=== PATIENT | female | born 1940 | race Caucasian/White ===

== ENCOUNTER 2017-10-11 22:30 | Inpatient (IN) ==
[2017-10-11] MEDS ORDERED: *HR* FentaNYL (PF) 100 MCG/2 ML VIAL IVP ONE (22:35)
--- NOTE | 2017-10-11 22:42 | Emergency Department Note ---
Disposition Clinical Impression: Hip fracture Qualifiers: Encounter type: initial encounter Fracture type: closed Laterality: right Qualified Code(s): S72.001A - Fracture of unspecified part of neck of right femur, initial encounter for closed fracture Fall Qualifiers: Encounter type: initial encounter Qualified Code(s): W19.XXXA - Unspecified fall, initial encounter Disposition: Admitted As Inpatient Condition: Fair Referrals: Joaquim Michel Jr, MD [Primary Care Provider] - Forms: ED Satisfaction Letter Time of Disposition: 23:11 Lower Extremity Injury HPI - General Chief Complaint: ED Extremity Injury, Lower Stated Complaint: fell Time Seen by Provider: 10/11/17 22:32 Source: patient, EMS Mode of arrival: EMS Limitations: altered mental status Nursing Notes Reviewed: Yes Vital Signs Reviewed: Yes - History of Present Illness HPI Narrative: Patient sustained an unwitnessed fall at the [facility] several hours ago. She had an imaging study for that indicated a right hip fracture. Other history was unable to be obtained given the patient's advanced dementia Injury location: Right hip Onset (ago): hour(s) Mechanism of Injury: unknown Context: fall Place: home Improves with: nothing Worsens with: movement Associated symptoms: Reports: unable to bear weight - Related Data Allergies Allergy/AdvReac Type Severity Reaction Status Date / Time Cephalosporins Allergy See Verified 05/21/16 16:50 Comments Limitations: ROS unobtainable due to patients medical condition Past Medical History - Past Medical History Source: old records reviewed Medical history: Reports: non-contributory, dementia, diabetes, hyperlipidemia, hypertension, osteoporosis, thyroid disease - Social History Smoking Status: Unknown if ever smoked Alcohol use: Reports: none Drug use: Reports: none Physical Exam - General Limitations: no limitations General appearance: alert - Head Head exam: atraumatic - Eye Eye exam: Present: other (Injection of her left conjunctiva) - ENT ENT exam: normal exam - Neck Neck exam: Present: normal inspection, full ROM - Chest Chest inspection: Present: normal inspection, symmetric chest wall rise - Respiratory Respiratory exam: Present: normal lung sounds bilaterally - Cardiovascular Cardiovascular exam: Present: regular rate, normal rhythm, normal heart sounds - Abdominal Exam Abdominal exam: Present: soft, Non-Tender - Rectal Exam Rectal exam: Present: deferred - Expanded Lower Extremity Exam Hip/Pelvis exam: Present: normal inspection. Absent: full ROM, tenderness Upper leg exam: Present: normal inspection Knee exam: Present: normal inspection Lower leg exam: Present: normal inspection, other (Shortened with slight internal rotation) Ankle exam: Present: normal inspection Foot/toe exam: Present: normal inspection Neurovascular/Tendon exam: Absent: pulse deficit - Neurological Exam Neurological exam: Present: alert, CN II-XII intact, other (Oriented to person only) - Psychiatric Psychiatric exam: Present: normal mood, flat affect - Skin Skin exam: Present: warm, dry, intact Course Course Narrative: Patient sustained an unwitnessed fall. It was reported that she had a diagnosed right hip fracture prehospital. - Consultations Consultation #1: Case discussed with Dr. Cho, orthopedics. Vital Signs Pulse Rate 77 10/11/17 22:34 Temperature 97.8 F 10/11/17 22:45 Pulse Rate 76 10/11/17 23:05 Respiratory Rate 18 10/11/17 23:05 Blood Pressure 133/109 10/11/17 23:05 O2 Sat by Pulse Oximetry 93 10/11/17 23:05 Oxygen Delivery Oxygen Delivery Room Air Extremity Injury, Lower - MDM Narrative Medical decision making narrative: Medication list reviewed - Medical Records Medical records reviewed: Yes I reviewed the patient's medical records. - Lab Data Lab results reviewed: Yes I reviewed the patient's lab results. Result diagrams: 10/11/17 22:43 10/11/17 22:43 Lab Results 10/11/17 10/11/17 10/11/17 Range/Units 22:43 22:43 22:43 WBC 9.9 (4.3-11.1) K/mcL RBC 4.65 (3.82-4.97) M/mcL Hgb 13.9 (11.5-15.4) g/dL Hct 42.7 (35.3-44.9) % MCV 91.8 (83.0-100.0) fL MCH 29.9 (28.0-33.3) pg MCHC 32.6 (31.6-35.5) g/dL RDW 12.5 (11.5-14.5) % Plt Count 258 (140-400) K/mcL MPV 10.9 (9.4-12.4) fL Immature Gran % 0.2 (0-4) % Seg Neutrophils % 66.6 % Lymphocytes % 23.8 % Monocytes % 5.7 % Eosinophils % 3.3 % Basophils % 0.4 % Neutrophils # 6.6 (1.6-8.9) K/mcL Lymphocytes # 2.4 (0.6-4.6) K/mcL Monocytes # 0.6 (0.0-1.3) K/mcL Eosinophils # 0.3 (0.0-0.6) K/mcL Basophils # 0.0 (0.0-0.2) K/mcL PT 13.9 H (9.4-12.1) Seconds INR 1.3 Sodium 143 (136-145) mEq/L Potassium 3.7 (3.5-5.1) mEq/L Chloride 111 H (98-107) mEq/L Carbon Dioxide 23 (23-29) mEq/L BUN 18 (8-23) mg/dL Creatinine 0.65 (0.60-1.20) mg/dL Est GFR ( Amer) > 60 (> 60) Est GFR (Non-Af Amer) > 60 (> 60) BUN/Creatinine Ratio 28 H (6-26) Glucose 115 H (70-105) mg/dL Calculated Osmolality 299 (280-300) Calcium 9.2 (8.6-10.3) mg/dL Total Bilirubin 0.6 (0.3-1.0) mg/dL AST 20 (13-39) Units/L ALT 25 (7-52) Units/L Alkaline Phosphatase 61 (34-104) Units/L Serum Total Protein 6.7 (6.4-8.9) g/dL Albumin 3.8 (3.5-5.7) g/dL Globulin 2.9 (2.4-3.5) g/dL Albumin/Globulin Ratio 1.3 (1.1-2.2) - Radiology Data Radiology results reviewed: Yes I reviewed the patient's radiology results. - EKG Data EKG attestation: Yes I reviewed and interpreted this EKG. EKG results narrative: NSR 78 TN 161 QRS 81 QT/QTC 379/413
[2017-10-11 22:50] LABS: Basophils % 0.4 %; Eosinophils # 0.3 K/mcL (0.0-0.6); Eosinophils % 3.3 %; Hematocrit 42.7 % (35.3-44.9); Hemoglobin 13.9 g/dL (11.5-15.4); Immature Granulocytes % 0.2 % (0-4); Lymphocytes # 2.4 K/mcL (0.6-4.6); Lymphocytes % 23.8 %; Mean Corpuscular HGB Conc 32.6 g/dL (31.6-35.5); Mean Corpuscular Hemoglobin 29.9 pg (28.0-33.3); Mean Corpuscular Volume 91.8 fL (83.0-100.0); Mean Platelet Volume 10.9 fL (9.4-12.4); Monocytes # 0.6 K/mcL (0.0-1.3); Monocytes % 5.7 %; Neutrophils # 6.6 K/mcL (1.6-8.9); Platelet Count 258 K/mcL (140-400); Red Blood Count 4.65 M/mcL (3.82-4.97); Red Cell Distribution Width 12.5 % (11.5-14.5); Segmented Neutrophils % 66.6 %
[2017-10-11 22:55] LABS: INR 1.3; Prothrombin Time 13.9 Seconds (9.4-12.1)
[2017-10-11 23:06] LABS: Alanine Aminotransferase 25 Units/L (7-52); Albumin 3.8 g/dL (3.5-5.7); Albumin/Globulin Ratio 1.3 (1.1-2.2); Alkaline Phosphatase 61 Units/L (34-104); Aspartate Amino Transferase 20 Units/L (13-39); BUN/Creatinine Ratio 28 (6-26); Bilirubin,Total 0.6 mg/dL (0.3-1.0); Blood Urea Nitrogen 18 mg/dL (8-23); Calcium 9.2 mg/dL (8.6-10.3); Carbon Dioxide 23 mEq/L (23-29); Chloride 111 mEq/L (98-107); Globulin 2.9 g/dL (2.4-3.5); Glucose 115 mg/dL (70-105); Osmolality,Calculated 299 (280-300); Potassium 3.7 mEq/L (3.5-5.1); Sodium 143 mEq/L (136-145); Total Protein 6.7 g/dL (6.4-8.9); eGFR For African Americans > 60 (> 60); eGFR For Non-African Americans > 60 (> 60)
[2017-10-11 23:51] LABS: Bilirubin,Urine Small (Negative); Blood,Urine Small (Negative); Clarity,Urine Cloudy (Clear); Color,Urine Red (Yellow); Glucose,Urine (UA) Normal (Normal); Ketones,Urine Trace mg/dL (Negative); Leukocyte Esterase,Urine Small (Negative); Nitrite,Urine Negative (Negative); PH,Urine 6.5 pH Units (5.0-8.0); Protein,Urine 30 mg/dL (Neg-Trace); Specific Gravity,Urine 1.027 (1.010-1.025); Urobilinogen,Urine Normal (Normal)
[2017-10-11 23:52] LABS: Bacteria,Urine None Seen per hpf (None-Few); RBC,Urine 15-30 per hpf (0-3); Squamous Epithelial Cell,Urine Many per lpf (None-Few); WBC,Urine 0-3 per hpf (0-3)
[2017-10-11] MEDS ORDERED: Naloxone 0.4 MG/ML INJ IVP PRN (23:55)
[2017-10-11] MEDS ORDERED: Ketorolac 30 MG/ML VIAL IVP PRN (23:55)
--- NOTE | 2017-10-11 23:55 | Internal Med History&Physical ---
Date of Encounter: 10/11/17 Time of Encounter: 23:45 Assessment and Plan (1) Hip fracture Current visit: Yes Status: Acute Patient with acute subcapital right hip fracture. Consult orthopedics for possible surgery. Patient appears to be medically stable for surgery at this time. Moderate risk for complications. However given her Alzheimer's dementia , she does have decreased chance of making a full recovery post surgery. Consult PTOT and elementary school social worker after surgery. Pain control. Monitor vital signs closely. Qualifiers: Encounter type: initial encounter Fracture type: closed Laterality: right Qualified Code(s): S72.001A - Fracture of unspecified part of neck of right femur, initial encounter for closed fracture (2) Diabetes mellitus Current visit: Yes Status: Chronic Monitor blood sugars. Low-dose sliding scale coverage with insulin Qualifiers: Diabetes mellitus type: type 2 Diabetes mellitus complication status: without complication Diabetes mellitus longterm insulin use: without terminal make up operator use Qualified Code(s): E11.9 - Type 2 diabetes mellitus without complications (3) Essential hypertension Current visit: Yes Status: Chronic Will resume home medications. (4) DVT prophylaxis Current visit: Yes Status: Acute With subcutaneous heparin postsurgery. Internal Medicine - H&P: HPI Chief complaint: Fall at assisted Admitted From: Emergency Dept Plans for Post Hospital Care: Transfer Intermediate Facility History of present illness: Ms. Smith is a 77 year old female patient with history of diabetes, hypertension , hyperlipidemia and severe Alzheimer's dementia who resides at assisted and apparently had an unwitnessed fall and was brought into the ER for evaluation. At baseline, patient does not ambulate much and requires help to move from bed to chair. She also needs help with feeding and does not participate in conversations and usually mumbles to questions. She also has difficulty recognizing people. In the ER, she was evaluated with a right hip x- ray which showed right impacted subcapital fracture of the right hip. Orthopedics was consulted and they recommended admission for further evaluation and possible surgery. At this time patient is unable to provide much history due to her history of dementia at baseline. History has been obtained through the patient's son was present at bedside. Patient's son reports that she had been treated for UTI and mild pneumonia recently and had just completed a course of Macrobid. Patient does have advance directives with DNR CC status. Past Med Surg Social Fam HX - Past Medical History Source: old records reviewed, obtained from family Medical history: dementia, diabetes, hyperlipidemia, hypertension, osteoporosis , thyroid disease - Social History Smoking Status: Unknown if ever smoked Alcohol use: none Drug use: none - Additional Family History Additional family history: Reviewed and found to be noncontributory at this time Internal Medicine - H&P: Meds 3 Allergy/AdvReac Type Severity Reaction Status Date / Time Cephalosporins Allergy See Verified 05/21/16 16:50 Comments ROS unobtainable: due to mental status All Systems PM: A 10-system review of systems was performed and is negative for pertinent findings except as documented above in the HPI. - Constitutional Vitals: Temp Pulse Resp BP Pulse Ox 97.8 F 76 18 133/109 93 10/11/17 22:45 10/11/17 23:05 10/11/17 23:05 10/11/17 23:05 10/11/17 23:05 General appearance: Present: A&O X 0, mild distress. Absent: answers questions appropriately - Respiratory Respiratory exam: Present: CTAB. Absent: accessory muscle use, rales, rhonchi, wheezes - Cardiovascular Cardiovascular exam: Present: RRR, +S1, +S2. Absent: diastolic murmur, gallop, rubs, systolic murmur - GI/Abdominal GI/Abdominal exam: Present: normal bowel sounds, soft, no peritoneal signs. Absent: distended, tenderness - Extremities Exam Extremities exam: Present: tenderness (Right hip). Absent: calf tenderness, cyanotic, pedal edema - Neurological Exam Neurological exam: Present: altered Additional comments: Unable to assess neuro exam due to patient's baseline mental status Internal Med - H&P Results - Labs CBC & Chem 7: 10/11/17 22:43 10/11/17 22:43 - EKG Data -: EKG Interpreted by Myself EKG shows normal: sinus rhythm - EKG Data Interpretation IM: normal EKG - Impressions Impressions Hip X-Ray 10/11/17 00:00 IMPRESSION: Impacted subcapital fracture of the right hip. D/ / Valentin Aly MD / Valentin Aly MD Interpreting Provider: Valentin Aly MD Chest X-Ray 10/11/17 22:33 IMPRESSION: Linear atelectasis versus scar in the left lung base. D/ / Jacy Tony MD / Jacy Tony MD Interpreting Provider: Jacy Tony MD Pelvis X-Ray 10/11/17 22:34 IMPRESSION: Impacted right subcapital hip fracture, likely acute. Mild rectal fecal impaction. D/ / Tino Santa MD / Tino Santa MD Interpreting Provider: Tino Santa MD
[2017-10-12] MEDS ORDERED: Dextrose Gel 15 GM/37.5 ML TUBE PO PRN ×2 (00:24)
[2017-10-12] MEDS ORDERED: *HR* Dextrose 50 % in Water (Syg) 50 ML SYRINGE IVP PRN (00:24)
[2017-10-12] MEDS ORDERED: D5% in Water 1,000 ML IVC PRN (00:24)
[2017-10-12] MEDS: 0.9 % Sodium Chloride 1,000 ML IVC SCH ×2 (02:10→14:37)
[2017-10-12] MEDS: Insulin LISPRO 300 UNITS/3 ML VIAL SQ SCH ×3 (06:16→17:32)
--- NOTE | 2017-10-12 08:02 | Orthopedic Consult Note ---
Date of Encounter: 10/12/17 Time of Encounter: 07:59 Assessment and Plan (1) Hip fracture Current Visit: Yes Status: Acute Valgus impacted subcapital femoral neck fracture. My recommendation is for percutaneous pin fixation in order to stabilize the right hip. There is no family at the bedside to converse with and therefore I will get a hold of the power of employment law attorney later today. She is tentatively on the schedule for the percutaneous pinning pending medical clearance and consent from the power of employment law attorney. Nothing by mouth today. Qualifiers: Encounter type: initial encounter Fracture type: closed Laterality: right Qualified Code(s): S72.001A - Fracture of unspecified part of neck of right femur, initial encounter for closed fracture History of Present Illness HPI: Ms. Smith is a 77 year old female admitted to the hospitalist due to a right subcapital impacted femoral neck fracture. She does not provide much history given severe Alzheimer's and there are no family members at the bedside to corroborate history. Therefore the history was obtained through the chart. The patient has no complaints though she does not communicate effectively. Past Med Surg Social Fam HX - Past Medical History Medical history: dementia, diabetes, hyperlipidemia, hypertension, osteoporosis , thyroid disease - Social History Smoking Status: Unknown if ever smoked Alcohol use: none Drug use: none - Family History Mother Living Status: Hx Family Cardiac Disorders: Yes Hx Family Endocrine Disorder: Yes (dm) Medications and Allergies Bisacodyl [Woman's Laxative] 10 mg PO DAILY PRN 10/12/17 [History] Ciprofloxacin OPTH Soln [Ciloxan OPTH Soln] 1 drop LEFT EYE TID 10/12/17 [ History] Desitin (Zinc Oxide) [Desitin Diaper Rash 40 % Paste] 1 appl TP DAILY 10/12/17 [ History] Docusate Sodium [Colace] 200 mg PO BID 10/12/17 [History] Levothyroxine Sodium [Levoxyl] 50 mcg PO DAILY 10/12/17 [History] Lisinopril 2.5 mg PO DAILY 10/12/17 [History] Melatonin [Melatin] 3 mg PO HS 10/12/17 [History] 3 Allergy/AdvReac Type Severity Reaction Status Date / Time Cephalosporins Allergy See Verified 05/21/16 16:50 Comments All Systems Reviewed: A 10-system review of systems was performed and is negative for pertinent findings except as documented above in the HPI. Physical Exam - Constitutional Vitals: Temp Pulse Resp BP Pulse Ox 98.3 F 79 16 106/50 94 10/12/17 07:07 10/12/17 07:07 10/12/17 07:07 10/12/17 07:07 10/12/17 07:07 Constitutional -Vitals reviewed -The patient is well developed and well nourished. -Mood is pleasant. -The patient is well groomed. Psychiatric -Dementia Respiratory: -Respiratory effort normal Abdomen: -Soft abdomen -Non tender -Non distended: Left upper extremity: -No deformities. The overlying skin is intact. No obvious signs of acute trauma. -No tenderness to palpation throughout. -No significant pain with passive motion of the shoulder, elbow, wrist, and fingers within the limits of the bed. -Unable to perform a meaningful neurologic exam given her mental status. -Radial pulse is present; Fingers have good capillary refill. Right upper extremity: -No deformities. The overlying skin is intact. No obvious signs of acute trauma. -No tenderness to palpation throughout. -No significant pain with passive motion of the shoulder, elbow, wrist, and fingers within the limits of the bed. -Unable to perform a meaningful neurologic exam given her mental status. -Radial pulse is present; Fingers have good capillary refill. Left lower extremity: -No deformities. The overlying skin is intact. No obvious signs of acute trauma. -No tenderness to palpation throughout. -No pain with passive motion of the hip, knee, ankle, and toes within the limits of the bed. -Padded motion and hip given her known injury -Unable to perform a meaningful neurologic exam given her mental status. -Toes have good capillary refill. Right lower extremity: -No deformities. The overlying skin is intact. No obvious signs of acute trauma. -No tenderness to palpation throughout. -Did not range this extremity due to her known injury -Unable to perform a meaningful neurologic exam given her mental status. -Toes have good capillary refill. Diagnostic Imaging: I did personally review and interpret the AP of the pelvis and lateral right hip which shows a subcapital impacted femoral neck fracture Results - Labs Result Diagrams: 10/11/17 22:43 10/11/17 22:43 Labs: Abnormal lab results PT 13.9 Seconds (9.4-12.1) H 10/11/17 22:43 Chloride 111 mEq/L (98-107) H 10/11/17 22:43 BUN/Creatinine Ratio 28 (6-26) H 10/11/17 22:43 Glucose 115 mg/dL (70-105) H 10/11/17 22:43 POC Glucose 103 (58-89) H 10/12/17 06:14 Urine Color Red (Yellow) A 10/11/17 23:35 Urine Clarity Cloudy (Clear) A 10/11/17 23:35 Ur Specific [place] 1.027 (1.010-1.025) H 10/11/17 23:35 Urine Protein 30 mg/dL (Neg-Trace) H 10/11/17 23:35 Urine Ketones Trace mg/dL (Negative) H 10/11/17 23:35 Urine Blood Small (Negative) H 10/11/17 23:35 Urine Bilirubin Small (Negative) H 10/11/17 23:35 Ur Leukocyte Esterase Small (Negative) H 10/11/17 23:35 Urine Microscopic RBC 15-30 per hpf (0-3) H 10/11/17 23:35 Ur Squamous Epith Cells Many per lpf (None-Few) H 10/11/17 23:35 All other labs normal. Consult Discharge Plan - Plan Referrals: Joaquim Michel Jr, MD [Primary Care Provider] -
--- NOTE | 2017-10-12 17:03 | Anesthesia Evaluation PreOp ---
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 History: Other (Alzheimer's dementia) Other Medical History: Diabetes Type II Anesthesia History: Past Anesthesia Alcohol Use: none Drug use: none Medications and Allergies Bisacodyl [Woman's Laxative] 10 mg PO DAILY PRN 10/12/17 [History] Ciprofloxacin OPTH Soln [Ciloxan OPTH Soln] 1 drop LEFT EYE TID 10/12/17 [ History] Desitin (Zinc Oxide) [Desitin Diaper Rash 40 % Paste] 1 appl TP DAILY 10/12/17 [ History] Docusate Sodium [Colace] 200 mg PO BID 10/12/17 [History] Levothyroxine Sodium [Levoxyl] 50 mcg PO DAILY 10/12/17 [History] Lisinopril 2.5 mg PO DAILY 10/12/17 [History] Melatonin [Melatin] 3 mg PO HS 10/12/17 [History] 3 Allergy/AdvReac Type Severity Reaction Status Date / Time Cephalosporins Allergy See Verified 05/21/16 16:50 Comments - Meds/Allergy Pre-op Review Medications Reviewed: Yes Allergies Reviewed: Yes Beta Blockers on Current Med List: Yes Anesthesia Results - Labs 10/11/17 22:43 10/11/17 22:43 Laboratory Tests 10/11/17 22:43 PT 13.9 H INR 1.3 Anesthesia Exam Vital Signs/O2 Sat/Glucose, Most Recent Temp Pulse Resp BP Pulse Ox 96.9 F L 54 16 90/62 95 10/12/17 15:31 10/12/17 15:31 10/12/17 15:31 10/12/17 15:31 10/12/17 15:31 Blood Glucose* 111 Height: 5'6''/1.68 m Weight: 140 lbs/59 kg NPO (# of Hours): 8 Pain Scale: 0 Pain Scale Used: Numeric (1 - 10) Anesthesia Assess/Plan ASA Score: 3 Modified [place] Scale for Level of Consciousness: Cooperative, oriented, and tranquil Anesthetic Plan: General Monitoring Plan: Standard Monitors Recovery Plan: PACU
[2017-10-12] MEDS ORDERED: *HR* PHENYLEPHRINE 1,000 MCG/10 ML SYRINGE IVP ONE (18:06)
[2017-10-12] MEDS ORDERED: Lidocaine -MPF 2% 2 ML VIAL ONE (18:07)
[2017-10-12] MEDS ORDERED: Dexamethasone 4 MG/ML VIAL ONE (18:07)
[2017-10-12] MEDS ORDERED: Lidocaine -MPF 4% 5 ML AMPUL ONE (18:07)
[2017-10-12] MEDS ORDERED: Ondansetron 4 MG/2 ML VIAL ONE (18:07)
[2017-10-12] MEDS ORDERED: *HR* Propofol 200 MG/20 ML VIAL IVP ONE (18:07)
[2017-10-12] MEDS ORDERED: *HR* FentaNYL (PF) 100 MCG/2 ML VIAL ONE (18:07)
[2017-10-12] MEDS ORDERED: MORPHINE SUL Oral CONC 10 MG/0.5 ML ORAL.SYG SL PRN (19:07)
[2017-10-12] MEDS ORDERED: Naloxone 0.4 MG/ML INJ IVP PRN (19:46)
--- NOTE | 2017-10-12 19:53 | Orthopedic Operative Note ---
Date of procedure: 10/12/17 Procedure: OPERATIVE REPORT DATE OF PROCEDURE: 10/12/2017 SURGEON: Gabriele Granda MD TRIM SAWYER(S): There are no assistants PREOPERATIVE DIAGNOSIS: Valgus impacted subcapital right femoral neck fracture POSTOPERATIVE DIAGNOSIS: Same PROCEDURE: In situ percutaneous screw fixation of the right femoral neck ANESTHESIA: General anesthesia PREOPERATIVE ANTIBIOTICS: 2 g of Ancef ESTIMATED BLOOD LOSS: 30 milliliters IMPLANTS: 6.5 millimeter [place] partially-threaded cancellous screws 3 LOCAL INJECTION: None PREOPERATIVE NOTE AND INDICATIONS: Patient is a 77-year-old female with a right subcapital impacted femoral neck fracture. She has dementia and I did discuss this with the next of kin. My recommendation was for percutaneous screw fixation to stabilize the hip and reduce the risk of displacement. The surgical plan was discussed with the patient and son. The risks, benefits, alternatives, and potential complications of this procedure were discussed with the patient including injury to veins, arteries, nerves, tendons, ligaments, and bone. Also discussed were the risks of infection, bleeding, pain, blood clots, the possible need for a blood transfusion, the possible need for further procedures, heart attack, stroke, and . Additional risks include malunion , nonunion, avascular necrosis, and the need for hardware removal or prosthetic replacement. All of this was explained in simple terms, and the patient and son verbalized understanding and wished to proceed. Consent was given to proceed with surgery. The patient was seen in the preoperative holding area where the right hip was marked. Final questions were answered. She was brought back to the operating room and a preoperative tunnel was performed to identify the correct patient, correct procedure, and the correct side. Gen. anesthesia was administered. The patient was placed onto the traction table and the right lower extremity was placed in the traction boot without traction placed. The left lower extremity is flexed and abducted out of the way. Could x-rays could be obtained. The right thigh was prepped and draped in the usual fashion. A timeout was performed identifying the correct patient, correct procedure, the correct side. A small, longitudinal incision was made along the lateral thigh and dissection proceeded through the fascia dylon. The vastus lateralis was opened and the guidewire drilled into the femoral head. 2 other guidewires were placed. Each guidewire was measured, drilled, and the definitive short threaded 6.5 mm partially threaded cancellus screw was placed. X-rays confirmed good position. The screws had good purchase. The wound was copiously irrigated and the fascia was closed with 0 Vicryl stitches followed by the skin with 3-0 Vicryl and zip tie closure and dressing. She was taken off from the traction table in good condition. The instrument, sponge, and needle counts were correct after wound closure. POST OPERATIVE PLAN: Weight Bearing: Weightbearing as tolerated to bilateral lower extremities. DVT Prophylaxis: Aspirin Activity: Activities as tolerated with the assistance of therapy Wound Care: Keep the dressing clean, dry, and intact. Pain Control: Per the hospitalist Perioperative antibiotic prophylaxis: 2 doses of clindamycin Social work for discharge planning Follow Up: 2 weeks Was there an entry level administrative assistant present: No Estimated blood loss (cc): 30
--- NOTE | 2017-10-12 20:16 | Anesthesia Evaluation Post Op ---
Date of Encounter: 10/12/17 Time of Encounter: 20:16 - Vital Signs Vital Signs: Vital Signs/O2 Sat, Most Current Temp Pulse Resp BP Pulse Ox 97.3 F L 85 16 124/86 95 10/12/17 19:42 10/12/17 20:02 10/12/17 20:02 10/12/17 20:02 10/12/17 20:02 - Lungs Lungs: Clear Ascult./Percussion - Airway Airway: Non-obstructed - Cardiovascular Regular Rate - Pain Pain Scale: 0 Pain Scale used: Numeric (1 - 10) - Nausea Vomiting Nausea Vomiting: Not Present - Hydration Hydration: NPO, Hernandez catheter - Discharge PostOp Status: Transfer Patient to floor
--- NOTE | 2017-10-13 | Internal Med Progress Note ---
Date of Encounter: 10/12/17 Time of Encounter: 16:30 - Assessment and plan (1) Hip fracture Current Visit: Yes Status: Acute Assessment and plan: Ortho following, plan for surgery today or tomorrow. Patient non-verbal but does not seem to be in any acute pain. 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 No acute events. Family present at bedside. They state she does not appear to be in any acute pain. - Constitutional Vitals: Temp Pulse Resp BP Pulse Ox 97.6 F 80 16 128/90 94 10/12/17 22:30 10/12/17 22:30 10/12/17 22:30 10/12/17 22:30 10/12/17 22:30 General appearance: Present: A&O X 0, no acute distress. Absent: answers questions appropriately Exam: - Respiratory Respiratory exam: Present: CTAB. Absent: accessory muscle use, rales, rhonchi, wheezes - Cardiovascular Cardiovascular exam: Present: RRR, +S1, +S2. Absent: diastolic murmur, gallop, rubs, systolic murmur - GI/Abdominal GI/Abdominal exam: Present: normal bowel sounds, soft, no peritoneal signs. Absent: distended, tenderness - Extremities Exam Extremities exam: Present: tenderness (Right hip). Absent: calf tenderness, cyanotic, pedal edema - Neurological Exam Neurological exam: Present: altered Internal Medicine: Result - Labs CBC & Chem 7: 10/13/17 06:54 10/13/17 06:54 - ABG Interpretation ABG results: PT/INR, D-dimer PT 13.9 Seconds (9.4-12.1) H 10/11/17 22:43 - Impressions Impressions Fluoroscopy 10/12/17 18:50 IMPRESSION: Intraprocedural fluoroscopic spot images as above. See separate procedure report for more information. D/ / Rigoberto Paulson MD / Rigoberto Paulson MD Interpreting Provider: Rigoberto Paulson MD Hip X-Ray 10/12/17 18:50 IMPRESSION: Intraprocedural fluoroscopic spot images as above. See separate procedure report for more information. D/ / Rigoberto Paulson MD / Rigoberto Paulson MD Interpreting Provider: Rigoberto Paulson MD - VTE Documentation of Mechanical Device: Intermittent pneumatic compression device Consult Discharge Plan - Plan Additional Instructions: [facility] DISCHARGE INSTRUCTIONS Dr. Granda PROCEDURE PERFORMED Reduction and fixation of right hip. Incision care -Daily dressing changes to the right hip with dry gauze and either paper tape or medipore tape. -Avoid soaking wound in water (no hot tubs, bathtubs, swimming pools). -May shower after 2 weeks from surgery date. Carefully wash incision with soap and water. Gently pat it dry. Don't rub the incision, or apply creams or lotions. Sit on a shower stool when showering to keep from falling. Weight bearing status -Weightbearing as tolerated to the bilateral lower extremities. Medications -Pain medication per the discharging medical doctor -Enteric coated aspirin 325 mg by mouth twice per day for 28 days from the date of the surgery. Other -Knee high KRIS hose 23 hours per day -Consult physical and occupational therapy for mobilization. -Up to chair with assistance at least twice per day. -Follow up with your primary care physician to discuss testing for bone mineral density. Follow-up with Dr. Granda at the office 2 weeks from the surgery date for a post operative evaluation. Call the office at [phone] to schedule appointment.oo Referrals: Joaquim Michel Jr, MD [Primary Care Provider] -
[2017-10-13] MEDS: Insulin LISPRO 300 UNITS/3 ML VIAL SQ SCH ×4 (00:31→18:47)
[2017-10-13] MEDS: 0.9 % Sodium Chloride 1,000 ML IVC SCH ×2 (00:33→11:16)
[2017-10-13 07:29] LABS: Hematocrit 38.1 % (35.3-44.9); Hemoglobin 12.6 g/dL (11.5-15.4)
[2017-10-13 07:42] LABS: BUN/Creatinine Ratio 23 (6-26); Blood Urea Nitrogen 14 mg/dL (8-23); Calcium 8.3 mg/dL (8.6-10.3); Carbon Dioxide 23 mEq/L (23-29); Chloride 113 mEq/L (98-107); Glucose 102 mg/dL (70-105); Osmolality,Calculated 295 (280-300); Potassium 3.7 mEq/L (3.5-5.1); Sodium 142 mEq/L (136-145); eGFR For African Americans > 60 (> 60); eGFR For Non-African Americans > 60 (> 60)
[2017-10-13] MEDS: Clindamycin 900 MG/50 ML 900 MG/50 ML IV.SOLN IVPB SCH ×2 (07:55→15:41)
[2017-10-13] MEDS: Acetaminophen 325 MG TABLET PO PRN ×2 (07:59→20:31)
[2017-10-13] MEDS ORDERED: D5% in Water 1,000 ML IVC PRN (08:13)
[2017-10-13] MEDS ORDERED: *HR* Dextrose 50 % in Water (Syg) 50 ML SYRINGE IVP PRN (08:13)
[2017-10-13] MEDS ORDERED: Dextrose Gel 15 GM/37.5 ML TUBE PO PRN ×2 (08:13)
--- NOTE | 2017-10-13 08:28 | Orthopedics Progress Note ---
Date of Encounter: 10/13/17 Time of Encounter: 08:26 - Assessment and Plan (1) Hip fracture Current Visit: Yes Status: Acute Qualifiers: Encounter type: initial encounter Fracture type: closed Laterality: right Qualified Code(s): S72.001A - Fracture of unspecified part of neck of right femur, initial encounter for closed fracture Subjective Interval history: S: Resting in bed; Noncommunicative due to mental status. O: Afebrile, VSS Right thigh dressing is clean, dry, intact Unable to perform neruologic exam due to mental status A: POD 1 afte right hip pinning P: Therapy when able WBAT B/L PIPE [place] is out ASA 325 PO BID for DVT ppx Objective Vital signs: Vital Signs Temp Pulse Resp BP Pulse Ox 10/13/17 07:33 97.7 F 70 15 99/54 92 10/13/17 03:55 98.1 F 85 19 111/76 96 10/12/17 23:30 97.8 F 53 16 108/57 94 10/12/17 22:30 97.6 F 80 16 128/90 94 10/12/17 21:30 97.6 F 76 14 118/76 90 10/12/17 21:00 97.8 F 62 16 112/57 90 10/12/17 20:30 98.6 F 76 16 130/78 91 10/12/17 20:12 98.6 F 87 16 131/98 95 10/12/17 20:02 85 16 124/86 95 10/12/17 19:52 75 16 125/49 96 10/12/17 19:42 97.3 F L 84 16 112/73 97 10/12/17 15:31 96.9 F L 54 16 90/62 95 10/12/17 11:04 99.2 F 75 16 109/60 92 10/12/17 08:57 94 Intake and Output 10/12/17 10/13/17 10/13/17 23:59 07:59 15:59 Output Total 450 / 450 Balance -30 / -30 -450 / -450 Output: Estimated Blood Loss Catheter 450 / 450 Other: Meal NPO Blood Glucose* 93 92 - Labs CBC & BMP: 10/13/17 06:54 10/13/17 06:54 Labs: Abnormal lab results PT 13.9 Seconds (9.4-12.1) H 10/11/17 22:43 Chloride 113 mEq/L (98-107) H 10/13/17 06:54 POC Glucose 111 (58-89) H 10/12/17 12:08 Calcium 8.3 mg/dL (8.6-10.3) L 10/13/17 06:54 Urine Color Red (Yellow) A 10/11/17 23:35 Urine Clarity Cloudy (Clear) A 10/11/17 23:35 Ur Specific [place] 1.027 (1.010-1.025) H 10/11/17 23:35 Urine Protein 30 mg/dL (Neg-Trace) H 10/11/17 23:35 Urine Ketones Trace mg/dL (Negative) H 10/11/17 23:35 Urine Blood Small (Negative) H 10/11/17 23:35 Urine Bilirubin Small (Negative) H 10/11/17 23:35 Ur Leukocyte Esterase Small (Negative) H 10/11/17 23:35 Urine Microscopic RBC 15-30 per hpf (0-3) H 10/11/17 23:35 Ur Squamous Epith Cells Many per lpf (None-Few) H 10/11/17 23:35 - VTE Documentation of Mechanical Device: Intermittent pneumatic compression device Consult Discharge Plan - Plan Additional Instructions: [facility] DISCHARGE INSTRUCTIONS Dr. Granda PROCEDURE PERFORMED Reduction and fixation of right hip. Incision care -Daily dressing changes to the right hip with dry gauze and either paper tape or medipore tape. -Avoid soaking wound in water (no hot tubs, bathtubs, swimming pools). -May shower after 2 weeks from surgery date. Carefully wash incision with soap and water. Gently pat it dry. Don't rub the incision, or apply creams or lotions. Sit on a shower stool when showering to keep from falling. Weight bearing status -Weightbearing as tolerated to the bilateral lower extremities. Medications -Pain medication per the discharging medical doctor -Enteric coated aspirin 325 mg by mouth twice per day for 28 days from the date of the surgery. Other -Knee high KRIS hose 23 hours per day -Consult physical and occupational therapy for mobilization. -Up to chair with assistance at least twice per day. -Follow up with your primary care physician to discuss testing for bone mineral density. Follow-up with Dr. Granda at the office 2 weeks from the surgery date for a post operative evaluation. Call the office at [phone] to schedule appointment.oo Referrals: Joaquim Michel Jr, MD [Primary Care Provider] -
[2017-10-13] MEDS ORDERED: Aspirin 325 MG TABLET PO SCH (09:00)
[2017-10-13] MEDS ORDERED: Insulin LISPRO 300 UNITS/3 ML VIAL SQ SCH ×2 (11:30→21:00)
--- NOTE | 2017-10-13 19:25 | Electrocardiograph Report ---
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
[2017-10-13] MEDS: Aspirin Enteric Coated 325 MG Tablet PO SCH ×2 (20:35→23:54)
--- NOTE | 2017-10-13 23:39 | Internal Med Progress Note ---
Date of Encounter: 10/13/17 Time of Encounter: 15:37 - Assessment and plan (1) Hip fracture Current Visit: Yes Status: Acute Assessment and plan: S/P nail pinning 10/12, doing will. Patient non-verbal but does not seem to be in any acute pain. 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 No acute events. Family present at bedside. They state she does not appear to be in any acute pain. 10/13: POD 1 right hip pinning. Nursing reported she was able to sit up today, and she is doing well. - Constitutional Vitals: Temp Pulse Resp BP Pulse Ox 98.6 F 82 16 137/56 92 10/13/17 17:34 10/13/17 17:34 10/13/17 17:34 10/13/17 17:34 10/13/17 17:34 General appearance: Present: A&O X 0, no acute distress. Absent: answers questions appropriately Exam: - Respiratory Respiratory exam: Present: CTAB. Absent: accessory muscle use, rales, rhonchi, wheezes - Cardiovascular Cardiovascular exam: Present: RRR, +S1, +S2. Absent: diastolic murmur, gallop, rubs, systolic murmur - GI/Abdominal GI/Abdominal exam: Present: normal bowel sounds, soft, no peritoneal signs. Absent: distended, tenderness - Extremities Exam Extremities exam: Present: tenderness (Right hip). Absent: calf tenderness, cyanotic, pedal edema - Neurological Exam Neurological exam: Present: altered Additional comments: Internal Medicine: Result - Labs CBC & Chem 7: 10/13/17 06:54 10/13/17 06:54 Labs: Short CBC 10/13/17 Range/Units 06:54 Hgb 12.6 (11.5-15.4) g/dL Hct 38.1 (35.3-44.9) % BMP 10/13/17 06:54 Sodium 142 Potassium 3.7 Chloride 113 H Carbon Dioxide 23 BUN 14 Creatinine 0.61 Glucose 102 Calcium 8.3 L - ABG Interpretation ABG results: PT/INR, D-dimer PT 13.9 Seconds (9.4-12.1) H 10/11/17 22:43 - VTE Documentation of Mechanical Device: Intermittent pneumatic compression device Consult Discharge Plan - Plan Additional Instructions: [facility] DISCHARGE INSTRUCTIONS Dr. Granda PROCEDURE PERFORMED Reduction and fixation of right hip. Incision care -Daily dressing changes to the right hip with dry gauze and either paper tape or medipore tape. -Avoid soaking wound in water (no hot tubs, bathtubs, swimming pools). -May shower after 2 weeks from surgery date. Carefully wash incision with soap and water. Gently pat it dry. Don't rub the incision, or apply creams or lotions. Sit on a shower stool when showering to keep from falling. Weight bearing status -Weightbearing as tolerated to the bilateral lower extremities. Medications -Pain medication per the discharging medical doctor -Enteric coated aspirin 325 mg by mouth twice per day for 28 days from the date of the surgery. Other -Knee high KRIS hose 23 hours per day -Consult physical and occupational therapy for mobilization. -Up to chair with assistance at least twice per day. -Follow up with your primary care physician to discuss testing for bone mineral density. Follow-up with Dr. Granda at the office 2 weeks from the surgery date for a post operative evaluation. Call the office at [phone] to schedule appointment.oo Referrals: Joaquim Michel Jr, MD [Primary Care Provider] -
[2017-10-14] MEDS: Insulin LISPRO 300 UNITS/3 ML VIAL SQ SCH ×5 (00:25→23:06)
[2017-10-14] MEDS: Aspirin Enteric Coated 325 MG Tablet PO SCH (09:46)
[2017-10-14] MEDS ORDERED: 0.9 % Sodium Chloride 1,000 ML ONE (13:07)
--- NOTE | 2017-10-14 23:48 | Internal Med Progress Note ---
Date of Encounter: 10/14/17 Time of Encounter: 11:47 - Assessment and plan (1) Hip fracture Current Visit: Yes Status: Acute Assessment and plan: S/P nail pinning 10/12, doing well. Patient non-verbal but does not seem to be in any acute pain. Qualifiers: Encounter type: initial encounter Fracture type: closed Laterality: right Qualified Code(s): S72.001A - Fracture of unspecified part of neck of right femur, initial encounter for closed fracture (2) DVT prophylaxis Current Visit: Yes Status: Acute Assessment and plan: Aspirin 325 mg BID (3) Diabetes mellitus Current Visit: Yes Status: Chronic Assessment and plan: Diabetic diet, ISS Qualifiers: Diabetes mellitus type: type 2 Diabetes mellitus complication status: without complication Diabetes mellitus longterm insulin use: without longterm use Qualified Code(s): E11.9 - Type 2 diabetes mellitus without complications (4) Essential hypertension Current Visit: Yes Status: Chronic - Subjective Interval history: Patient non-verbal at baseline. No acute events. Family present at bedside. They state she does not appear to be in any acute pain. 10/13: POD 1 right hip pinning. Nursing reported she was able to sit up today, and she is doing well. - Constitutional Vitals: Temp Pulse Resp BP Pulse Ox 97.7 F 71 16 106/66 94 10/14/17 20:27 10/14/17 20:27 10/14/17 20:27 10/14/17 20:27 10/14/17 20:27 General appearance: Present: A&O X 0, no acute distress. Absent: answers questions appropriately Exam: - Respiratory Respiratory exam: Present: CTAB. Absent: accessory muscle use, rales, rhonchi, wheezes - Cardiovascular Cardiovascular exam: Present: RRR, +S1, +S2. Absent: diastolic murmur, gallop, rubs, systolic murmur - GI/Abdominal GI/Abdominal exam: Present: normal bowel sounds, soft, no peritoneal signs. Absent: distended, tenderness - Extremities Exam Extremities exam: Present: tenderness (Right hip). Absent: calf tenderness, cyanotic, pedal edema - Neurological Exam Neurological exam: Present: altered Internal Medicine: Result - Labs CBC & Chem 7: 10/13/17 06:54 10/13/17 06:54 - ABG Interpretation ABG results: PT/INR, D-dimer PT 13.9 Seconds (9.4-12.1) H 10/11/17 22:43 - VTE Documentation of Mechanical Device: Intermittent pneumatic compression device Consult Discharge Plan - Plan Additional Instructions: [facility] DISCHARGE INSTRUCTIONS Dr. Granda PROCEDURE PERFORMED Reduction and fixation of right hip. Incision care -Daily dressing changes to the right hip with dry gauze and either paper tape or medipore tape. -Avoid soaking wound in water (no hot tubs, bathtubs, swimming pools). -May shower after 2 weeks from surgery date. Carefully wash incision with soap and water. Gently pat it dry. Don't rub the incision, or apply creams or lotions. Sit on a shower stool when showering to keep from falling. Weight bearing status -Weightbearing as tolerated to the bilateral lower extremities. Medications -Pain medication per the discharging medical doctor -Enteric coated aspirin 325 mg by mouth twice per day for 28 days from the date of the surgery. Other -Knee high KRIS hose 23 hours per day -Consult physical and occupational therapy for mobilization. -Up to chair with assistance at least twice per day. -Follow up with your primary care physician to discuss testing for bone mineral density. Follow-up with Dr. Granda at the office 2 weeks from the surgery date for a post operative evaluation. Call the office at [phone] to schedule appointment.oo Referrals: Joaquim Michel Jr, MD [Primary Care Provider] -
[2017-10-15] MEDS ORDERED: *HR* Enoxaparin 40 MG/0.4 ML SYRINGE SQ SCH (06:00)
--- NOTE | 2017-10-15 07:36 | Orthopedics Progress Note ---
Date of Encounter: 10/15/17 Time of Encounter: 07:35 - Assessment and Plan (1) Hip fracture Current Visit: Yes Status: Acute Qualifiers: Encounter type: initial encounter Fracture type: closed Laterality: right Qualified Code(s): S72.001A - Fracture of unspecified part of neck of right femur, initial encounter for closed fracture Subjective Interval history: S: Resting in bed; Noncommunicative due to mental status. O: Afebrile, VSS Right thigh dressing is clean, dry, intact Unable to perform neruologic exam due to mental status A: POD 3 after right hip pinning P: Therapy when able WBAT B/L LE ASA 325 PO BID for DVT ppx Orthopedically stable for discharge Objective Vital signs: Vital Signs Temp Pulse Resp BP Pulse Ox 10/15/17 07:00 97.8 F 73 16 104/68 96 10/14/17 23:56 97.5 F L 70 14 101/65 95 10/14/17 20:27 97.7 F 71 16 106/66 94 10/14/17 16:35 98.6 F 93 18 110/69 92 10/14/17 12:21 98.4 F 96 15 128/76 94 Intake and Output 10/14/17 10/14/17 10/15/17 15:59 23:59 07:59 Output Total 150 / 150 400 / 400 Balance -150 / -150 -400 / -400 Output: Catheter 150 / 150 400 / 400 Urethral ([place]) 150 / 150 Other: # Urine Diapers 1 Blood Glucose* 156 93 - Labs CBC & BMP: 10/13/17 06:54 10/13/17 06:54 Labs: Abnormal lab results PT 13.9 Seconds (9.4-12.1) H 10/11/17 22:43 Chloride 113 mEq/L (98-107) H 10/13/17 06:54 POC Glucose 93 (58-89) H 10/14/17 20:14 Calcium 8.3 mg/dL (8.6-10.3) L 10/13/17 06:54 Urine Color Red (Yellow) A 10/11/17 23:35 Urine Clarity Cloudy (Clear) A 10/11/17 23:35 Ur Specific [place] 1.027 (1.010-1.025) H 10/11/17 23:35 Urine Protein 30 mg/dL (Neg-Trace) H 10/11/17 23:35 Urine Ketones Trace mg/dL (Negative) H 10/11/17 23:35 Urine Blood Small (Negative) H 10/11/17 23:35 Urine Bilirubin Small (Negative) H 10/11/17 23:35 Ur Leukocyte Esterase Small (Negative) H 10/11/17 23:35 Urine Microscopic RBC 15-30 per hpf (0-3) H 10/11/17 23:35 Ur Squamous Epith Cells Many per lpf (None-Few) H 10/11/17 23:35 - VTE Documentation of Mechanical Device: Intermittent pneumatic compression device Consult Discharge Plan - Plan Additional Instructions: [facility] DISCHARGE INSTRUCTIONS Dr. Granda PROCEDURE PERFORMED Reduction and fixation of right hip. Incision care -Daily dressing changes to the right hip with dry gauze and either paper tape or medipore tape. -Avoid soaking wound in water (no hot tubs, bathtubs, swimming pools). -May shower after 2 weeks from surgery date. Carefully wash incision with soap and water. Gently pat it dry. Don't rub the incision, or apply creams or lotions. Sit on a shower stool when showering to keep from falling. Weight bearing status -Weightbearing as tolerated to the bilateral lower extremities. Medications -Pain medication per the discharging medical doctor -Enteric coated aspirin 325 mg by mouth twice per day for 28 days from the date of the surgery. Other -Knee high KRIS hose 23 hours per day -Consult physical and occupational therapy for mobilization. -Up to chair with assistance at least twice per day. -Follow up with your primary care physician to discuss testing for bone mineral density. Follow-up with Dr. Granda at the office 2 weeks from the surgery date for a post operative evaluation. Call the office at [phone] to schedule appointment.oo Referrals: Joaquim Michel Jr, MD [Primary Care Provider] -
[2017-10-15] MEDS: Insulin LISPRO 300 UNITS/3 ML VIAL SQ SCH ×2 (08:14→11:46)
[2017-10-15] MEDS ORDERED: Furosemide 40 MG/4 ML VIAL IVP ONE (09:20)
[2017-10-15 11:42] VITALS: BP 107/63
--- NOTE | 2017-10-15 13:26 | Discharge Summary ---
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 Qualified Code(s): E11.9 - Type 2 diabetes mellitus without complications (3) Essential hypertension Priority: Secondary Status: Chronic (4) DVT prophylaxis Priority: Secondary Status: Acute - Discharge Medications Prescriptions: Polymyxn-B/Trimeth Opth Drops [Polytrim Opth Drops] 1 drop LEFT EYE QID 10 Days #1 bottle Home Medications: Bisacodyl [Woman's Laxative] 10 mg PO DAILY PRN 10/12/17 [History] Desitin (Zinc Oxide) [Desitin] 1 appl TP DAILY 10/12/17 [History] Docusate Sodium [Colace] 200 mg PO BID 10/12/17 [History] Levothyroxine Sodium [Levoxyl] 50 mcg PO DAILY 10/12/17 [History] Lisinopril 2.5 mg PO DAILY 10/12/17 [History] Melatonin [Melatin] 3 mg PO HS 10/12/17 [History] Acetaminophen [Tylenol] 650 mg PO Q6HR PRN tablet 10/15/17 [Rx] Aspirin Enteric Coated [Aspirin EC] 325 mg PO BID 21 Days #42 tablet. [Rx] Furosemide [Lasix] 20 mg PO DAILY #3 tablet 10/15/17 [Rx] Polymyxn-B/Trimeth Opth Drops [Polytrim Opth Drops] 1 drop LEFT EYE QID 10 Days #1 bottle 10/15/17 [Rx] Allergies/Adverse Reactions: 3 Allergy/AdvReac Type Severity Reaction Status Date / Time Cephalosporins Allergy See Verified 10/14/17 09:47 Comments Date of admission: 10/11/17 23:55 Primary care physician: Joaquim Michel Jr, MD Consults: 10/12/17 19:46 Consult to Occupational Therapy [CONS] Routine Comment: Evaluate, develop and implement POC Reason for Consult: post hip surgery Consult to Physical Therapy [CONS] Routine Comment: Evaluate, develop and implement POC Reason for Consult: post hip surgery Consult to Area Secretary [CONS] Routine Reason for SW Consult: post -op hip fracture Discharging clinician: Anshul Lopes - Patient Status Disposition: Transfer SNF Condition: Fair Functional capacity at discharge: wheelchair bound Overall status at discharge: patient is not back to baseline - Discharge Instructions Follow Up With: Joaquim Michel Jr, MD [Primary Care Provider] - Additional Instructions: LONG-TERM DISCHARGE INSTRUCTIONS Dr. Granda PROCEDURE PERFORMED Reduction and fixation of right hip. Incision care -Daily dressing changes to the right hip with dry gauze and either paper tape or medipore tape. -Avoid soaking wound in water (no hot tubs, bathtubs, swimming pools). -May shower after 2 weeks from surgery date. Carefully wash incision with soap and water. Gently pat it dry. Don't rub the incision, or apply creams or lotions. Sit on a shower stool when showering to keep from falling. Weight bearing status -Weightbearing as tolerated to the bilateral lower extremities. Medications -Pain medication per the discharging medical doctor -Enteric coated aspirin 325 mg by mouth twice per day for 28 days from the date of the surgery. Other -Knee high KRIS hose 23 hours per day -Consult physical and occupational therapy for mobilization. -Up to chair with assistance at least twice per day. -Follow up with your primary care physician to discuss testing for bone mineral density. Follow-up with Dr. Granda at the office 2 weeks from the surgery date for a post operative evaluation. Call the office at [phone] to schedule appointment.oo - Diet and Activity Activity: as per physical therapy Diet: advance to your usual diet, diabetic diet, low fat, low cholesterol, low salt diet Hospital course: Ms. Smith is a 77 year old female with history of diabetes, hypertension, hyperlipidemia and severe Alzheimer's dementia who resides at [facility] and apparently had an unwitnessed fall and was brought into the ER for evaluation. At baseline, patient does not ambulate much and requires help to move from bed to chair. She also needs help with feeding and does not participate in conversations and usually mumbles to questions. She also has difficulty recognizing people. In the ER, she was evaluated with a right hip x-ray which showed right impacted subcapital fracture of the right hip. Orthopedics was consulted. She underwent percutaneous screw fixation of right femoral neck. She tolerated procedure well. She was discharged home in stable condition with ASA 325 BID for 21 days for DVT prophylaxis. - Time Spent with Patient Total time spent providing and/or coordinating discharge services: - Constitutional Vitals: Temp Pulse Resp BP Pulse Ox 98.1 F 78 16 107/63 95 10/15/17 11:42 10/15/17 11:42 10/15/17 11:42 10/15/17 11:42 10/15/17 11:42 General appearance: Present: A&O X 0, no acute distress. Absent: answers questions appropriately Exam: - Respiratory Respiratory exam: Present: CTAB. Absent: accessory muscle use, rales, rhonchi, wheezes - Cardiovascular Cardiovascular exam: Present: RRR, +S1, +S2. Absent: diastolic murmur, gallop, rubs, systolic murmur - GI/Abdominal GI/Abdominal exam: Present: normal bowel sounds, soft, no peritoneal signs. Absent: distended, tenderness - Extremities Exam Extremities exam: Present: tenderness (Right hip). Absent: calf tenderness, cyanotic, pedal edema - Neurological Exam Neurological exam: Present: altered - VTE Documentation of Mechanical Device: Intermittent pneumatic compression device
--- NOTE | 2017-10-15 13:51 | Physician Discharge Referral ---
ExtendedCare Referral Info Institutional Level of Care: Skilled - Diagnosis (1) Hip fracture Priority: Primary Status: Acute (2) Diabetes mellitus Priority: Secondary Status: Chronic (3) Essential hypertension Priority: Secondary Status: Chronic (4) DVT prophylaxis Priority: Secondary Status: Acute - Transfer Medications Prescriptions: Aspirin Enteric Coated [Aspirin EC] 325 mg PO BID 21 Days #42 tablet. Furosemide [Lasix] 20 mg PO DAILY #3 tablet Polymyxn-B/Trimeth Opth Drops [Polytrim Opth Drops] 1 drop LEFT EYE QID 10 Days #1 bottle Home Medications: Bisacodyl [Woman's Laxative] 10 mg PO DAILY PRN 10/12/17 [History] Desitin (Zinc Oxide) [Desitin] 1 appl TP DAILY 10/12/17 [History] Docusate Sodium [Colace] 200 mg PO BID 10/12/17 [History] Levothyroxine Sodium [Levoxyl] 50 mcg PO DAILY 10/12/17 [History] Lisinopril 2.5 mg PO DAILY 10/12/17 [History] Melatonin [Melatin] 3 mg PO HS 10/12/17 [History] Acetaminophen [Tylenol] 650 mg PO Q6HR PRN tablet 10/15/17 [Rx] Aspirin Enteric Coated [Aspirin EC] 325 mg PO BID 21 Days #42 tablet. [Rx] Furosemide [Lasix] 20 mg PO DAILY #3 tablet 10/15/17 [Rx] Polymyxn-B/Trimeth Opth Drops [Polytrim Opth Drops] 1 drop LEFT EYE QID 10 Days #1 bottle 10/15/17 [Rx] Allergies/Adverse Reactions: 3 Allergy/AdvReac Type Severity Reaction Status Date / Time Cephalosporins Allergy See Verified 10/14/17 09:47 Comments - Respiratory Orders Smoking Cessation: Smoking cessation has been advised. For more information, call the [place] Tobacco Quit Line at 7-547-VBXK-NOW. - Ancillary Orders May use pressure relief devices daily prn, May consult with Dentist, Flume Ride Operator, Patient Care Secretary PRN - Mobility Orders Other (as per physical therapy) - Rehabiliation Orders Rehab Orders: Evaluation for Physical Therapy, Evaluation for Occupational Therapy - Treatments Skin tear care topically daily PRN per policy, May check for fecal impaction rectally daily PRN - Diet Orders No Concentrated Sweets CERTIFICATION: I certify that the transfer of the above named patient to an Extended Care Facility is necessary for the continuing treatment of the diagnosis listed. The above information is true and accurate reflection of patient's current condition. Confidential - Redisclosure prohibited without a patient's written consent.
== END 2017-10-15 15:23 | DRG 482 ==
LOC: EMEROO 22:30 → 3NENU 22:30
PROVIDERS: ADMIT Internal Medicine; ATTEND Internal Medicine